=== PATIENT | male | born 1955 | race Caucasian/White ===

== ENCOUNTER 2017-02-15 15:22 | Emergency (ER) | payer SELFPAY ==
[~2017-02-15] VITALS: Ht 172.7 cm; Wt 81.0 kg
[2017-02-15 17:30] VITALS: BP 125/80
[2017-02-15] MEDS ORDERED: IBUPROFEN 600MG TABLET PO ONE (17:30)
== END 2017-02-15 18:55 | disposition home or self-care (01) ==
LOC: ER 15:23
DX: S52.121A Displaced fracture of head of right radius, initial encounter for closed fracture (principal); F20.9 Schizophrenia, unspecified; W18.39XA Other fall on same level, initial encounter; Y93.89 Activity, other specified; Y92.89 Other specified places as the place of occurrence of the external cause; Y99.8 Other external cause status
CPT/HCPCS: 29105; 73080; 99284

== ENCOUNTER 2019-08-29 02:13 | Emergency (ER) | payer SELFPAY ==
[~2019-08-29] VITALS: Ht 170.2 cm; Wt 77.0 kg
[2019-08-29 04:13] LABS: BASOPHILS % 0.4 % (0.0-2.0); EOSINOPHILS % 0.6 % (0.0-5.0); HEMATOCRIT. 47.8 % (42.0-52.0); HEMOGLOBIN. 16.4 g/dL (14.0-18.0); LYMPHOCYTES % 22.3 % (20.0-50.0); MEAN CORPUSCULAR VOLUME 96.3 fL (80.0-94.0); MEAN PLATELET VOLUME 9.6 fl (7.4-10.4); MONOCYTES % 10.9 % (2.0-8.0); NEUTROPHILS % 65.8 % (40.0-76.0); PLATELET 246 x1000/uL (130-400); RED BLOOD CELL COUNT 4.96 mill/uL (4.7-6.1)
[2019-08-29 04:14] LABS: CLARITY URINE CLOUDY (CLEAR); COLOR URINE DARK YELLOW (YELLOW); KETONES URINE 2+ (NEGATIVE); LEUKOCYTE ESTERASE URINE 2+ (NEGATIVE); NITRITE URINE POSITIVE (NEGATIVE); OCCULT BLOOD URINE NEGATIVE (NEGATIVE); PH URINE 5.5 (4.5-8.0); PROTEIN URINE 1+ (NEGATIVE); SPECIFIC GRAVITY URINE 1.026 (1.005-1.030)
[2019-08-29 04:20] LABS: CHLORIDE 106 mEq/L (98-107)
[2019-08-29 04:25] LABS: ETHANOL BLOOD < 10 mg/dL
[2019-08-29 05:20] LABS: *AMPHETAMINES SCREEN URINE PRESUMTIVE POSITIVE (NEGATIVE); *BARBITURATES SCREEN URINE NEGATIVE (NEGATIVE); *BENZODIAZEPINES SCREEN URINE NEGATIVE (NEGATIVE); *COCAINE SCREEN URINE NEGATIVE (NEGATIVE); METHADONE URINE SCREEN NEGATIVE (NEGATIVE)
[2019-08-29 05:21] LABS: CANNABINOID URINE SCREEN NEGATIVE (NEGATIVE); OPIATES URINE SCREEN NEGATIVE (NEGATIVE); PHENCYCLIDINE URINE SCREEN NEGATIVE (NEGATIVE)
[2019-08-29] MEDS ORDERED: LORAZEPAM 0.5MG TABLET PO ONE (14:00)
[2019-08-29] MEDS ORDERED: OLANZAPINE 2.5MG TABLET PO SCH (14:00)
[2019-08-29 15:40] VITALS: BP 129/74
== END 2019-08-29 15:55 | disposition home or self-care (01) ==
LOC: ER 02:13
DX: F32.9 Major depressive disorder, single episode, unspecified (principal); N39.0 Urinary tract infection, site not specified; F20.9 Schizophrenia, unspecified; F29 Unspecified psychosis not due to a substance or known physiological condition
CPT/HCPCS: 36415; 80305; 80307; 80320; 80329; 81003; 87077; 87186; 99284; G0480

== ENCOUNTER 2020-05-14 19:58 | Emergency (ER) | payer MEDICAID ==
[~2020-05-14] VITALS: Ht 165.1 cm; Wt 73.0 kg
[2020-05-14 20:14] VITALS: BP 78/80
== END 2020-05-14 23:09 | disposition home or self-care (01) ==
LOC: ER 19:58
DX: F41.9 Anxiety disorder, unspecified (principal)
CPT/HCPCS: 93005; 99283

== ENCOUNTER 2020-05-29 10:38 | Emergency (ER) | payer MEDICAID ==
[~2020-05-29] VITALS: Ht 167.6 cm; Wt 68.0 kg
[2020-05-29] MEDS ORDERED: IBUPROFEN 600MG TABLET PO STA (12:58)
[2020-05-29 13:46] LABS: CLARITY URINE CLEAR (CLEAR); COLOR URINE YELLOW (YELLOW); KETONES URINE NEGATIVE (NEGATIVE); LEUKOCYTE ESTERASE URINE 1+ (NEGATIVE); NITRITE URINE POSITIVE (NEGATIVE); OCCULT BLOOD URINE TRACE (NEGATIVE); PH URINE 6.5 (4.5-8.0); PROTEIN URINE NEGATIVE (NEGATIVE); SPECIFIC GRAVITY URINE 1.018 (1.005-1.030); UROBILINOGEN URINE 0.2 E.U./dL (0.2-1.0)
[2020-05-29] MEDS ORDERED: AMOXICILLIN 500 MG CAPSULE PO ONE (14:00)
[2020-05-29 14:14] LABS: *AMPHETAMINES SCREEN URINE PRESUMTIVE POSITIVE (NEGATIVE)
[2020-05-29 14:15] LABS: *BARBITURATES SCREEN URINE NEGATIVE (NEGATIVE); *BENZODIAZEPINES SCREEN URINE NEGATIVE (NEGATIVE); *COCAINE SCREEN URINE NEGATIVE (NEGATIVE); CANNABINOID URINE SCREEN NEGATIVE (NEGATIVE); METHADONE URINE SCREEN NEGATIVE (NEGATIVE); OPIATES URINE SCREEN NEGATIVE (NEGATIVE); PHENCYCLIDINE URINE SCREEN NEGATIVE (NEGATIVE)
[2020-05-29 15:53] VITALS: BP 105/67
== END 2020-05-29 15:55 | disposition home or self-care (01) ==
LOC: ER 10:49
DX: N30.00 Acute cystitis without hematuria (principal); T43.621A Poisoning by amphetamines, accidental (unintentional), initial encounter; Y92.9 Unspecified place or not applicable; F32.9 Major depressive disorder, single episode, unspecified; F20.9 Schizophrenia, unspecified; Z59.0 Homelessness
CPT/HCPCS: 80305; 81003; 99285

== ENCOUNTER 2021-02-12 00:15 | Emergency (ER) | payer MEDICAID ==
[~2021-02-12] VITALS: Ht 172.7 cm; Wt 77.0 kg
[2021-02-12] MEDS ORDERED: HALOPERIDOL LACTATE 5MG/ML VIAL IM STA (00:48)
[2021-02-12] MEDS ORDERED: DIPHENHYDRAMINE 50MG/ML VIAL IM STA (00:48)
[2021-02-12 02:07] LABS: BASOPHILS % 1.1 % (0.0-2.0); EOSINOPHILS % 2.2 % (0.0-5.0); HEMOGLOBIN. 14.3 g/dL (14.0-18.0); MEAN CORPUSCULAR HEMOGLOBIN 31.5 pg (28.0-32.0); MEAN CORPUSCULAR VOLUME 92.7 fL (80.0-94.0); MEAN PLATELET VOLUME 8.7 fl (7.4-10.4); MONOCYTES % 7.9 % (2.0-8.0); NEUTROPHILS % 63.8 % (40.0-76.0); PLATELET 300 x1000/uL (130-400); RED BLOOD CELL COUNT 4.53 mill/uL (4.7-6.1)
[2021-02-12 02:14] LABS: CHLORIDE 110 mEq/L (98-107)
[2021-02-12 02:18] LABS: ETHANOL BLOOD < 10 mg/dL
[2021-02-12 02:22] LABS: CREATINE KINASE 181 IU/L (39-308)
[2021-02-12 02:40] LABS: CLARITY URINE CLEAR (CLEAR); COLOR URINE YELLOW (YELLOW); KETONES URINE NEGATIVE (NEGATIVE); LEUKOCYTE ESTERASE URINE NEGATIVE (NEGATIVE); NITRITE URINE NEGATIVE (NEGATIVE); OCCULT BLOOD URINE NEGATIVE (NEGATIVE); PH URINE 6.5 (4.5-8.0); PROTEIN URINE NEGATIVE (NEGATIVE); SPECIFIC GRAVITY URINE 1.021 (1.005-1.030)
[2021-02-12] MEDS ORDERED: SODIUM CHLORIDE 0.9% 100 ML IV ONE (02:45)
[2021-02-12 02:53] LABS: *AMPHETAMINES SCREEN URINE PRESUMTIVE POSITIVE (NEGATIVE); *BARBITURATES SCREEN URINE NEGATIVE (NEGATIVE); *BENZODIAZEPINES SCREEN URINE NEGATIVE (NEGATIVE)
[2021-02-12 02:54] LABS: *COCAINE SCREEN URINE NEGATIVE (NEGATIVE); CANNABINOID URINE SCREEN PRESUMTIVE POSITIVE (NEGATIVE); METHADONE URINE SCREEN NEGATIVE (NEGATIVE); OPIATES URINE SCREEN NEGATIVE (NEGATIVE); PHENCYCLIDINE URINE SCREEN NEGATIVE (NEGATIVE)
[2021-02-12] MEDS ORDERED: SODIUM CHLORIDE 0.9% 1,000 ML IV NR (03:00)
[2021-02-13 20:30] VITALS: BP 101/63
== END 2021-02-13 23:45 ==
LOC: ER 00:15
DX: F23 Brief psychotic disorder (principal); F19.10 Other psychoactive substance abuse, uncomplicated; F32.9 Major depressive disorder, single episode, unspecified
CPT/HCPCS: 36415; 70450; 71045; 80053; 80305; 80307; 80320; 80329; 81003; 82140; 82550; 82962; 83605; 83690; 83880; 84443; 84484; 85025; 87426; 93005; 96360; 96372; 99285; J1200; J1630; Z7610; G0480